=== PATIENT | female | born 1955 | race Caucasian/White ===

== ENCOUNTER 2023-07-18 10:00 | Outpatient (CLI) | payer MEDICARE | END 2023-07-18 10:01 | disposition home or self-care (01) | LOC: CSHMAMMO 10:00 | PROVIDERS: ATTEND Nurse Practitioner Family | DX: Z12.31 Encounter for screening mammogram for malignant neoplasm of breast (principal); Z13.820 Encounter for screening for osteoporosis | CPT/HCPCS: 77063; 77067; 77080 ==

== ENCOUNTER 2024-01-02 12:07 | Outpatient (CLI) | payer MEDICARE | END 2024-01-02 12:08 | disposition home or self-care (01) | LOC: CSHRAD 12:07 | PROVIDERS: ATTEND Physician Assistant Medical | DX: R05.3 Chronic cough (principal) | CPT/HCPCS: 71046 ==